=== PATIENT | male | born 2000 | race Caucasian/White ===

== ENCOUNTER 2020-06-23 11:43 | Emergency (ER) | payer OTHER ==
[~2020-06-23] VITALS: Ht 185 cm; Wt 97.5 kg
[2020-06-23] MEDS ORDERED: FAMOTIDINE 20MG/2ML IV (PEPCID) IV STA (11:54)
--- NOTE | 2020-06-23 11:59 | ED Abdominal Pain ---
General Stated Complaint: ABD PAIN Source of Information: Patient Exam Limitations: No Limitations History of Present Illness Date Seen by Provider: Jun 23, 2020 Time Seen by Provider: 11:46 Initial Comments Patient presents ER by private conveyance with chief complaint of 2 days of mild to moderate 4 out of 10 persistent epigastric abdominal discomfort. He rates it as sharp and took some Tums for today that did not help. He is not using any medications or have any history of medical problems. No history abdominal surgeries. No trauma. Pain started around 4:30 in the afternoon and he had eaten a chicken sandwich before that. No sick contacts. No diarrhea or constipation. He had a normal bowel movement today. No nausea vomiting fever chills. Allergies and Home Medications Allergies Coded Allergies: No Known Drug Allergies (Unverified , 06/23/20) Patient Home Medication List Home Medication List Reviewed: Yes Review of Systems Review of Systems Constitutional: No chills, No diaphoresis EENTM: No Blurred Vision, No Double Vision Respiratory: Denies Cough, Denies Shortness of Air Cardiovascular: Denies Chest Pain, Denies Edema Gastrointestinal: See HPI; Denies Abdomen Distended; Abdominal Pain; Denies Blood Streaked Stools, Denies Constipated, Denies Diarrhea, Denies Nausea Genitourinary: Denies Burning, Denies Discharge Musculoskeletal: No back pain, No joint pain Skin: No pruritus, No rash All Other Systems Reviewed Negative Unless Noted: Yes Past Igfatiw-Toivea-Febstd Hx Patient Social History Alcohol Use: Denies Use Smoking Status: Never a Smoker Physical Exam Vital Signs Vital Signs - First Documented 06/23/20 11:50 Temp 36.6 Pulse 112 Resp 20 B/P (MAP) 150/87 (108) Pulse Ox 98 Capillary Refill : Height/Weight/BMI Height: '" Weight: lbs. oz. kg; BMI Method: General Appearance: WD/WN, no apparent distress HEENT: PERRL/EOMI, pharynx normal Neck: full range of motion, normal inspection Respiratory: no respiratory distress, no accessory muscle use Cardiovascular: normal peripheral pulses, regular rate, rhythm Gastrointestinal: normal bowel sounds, soft, no organomegaly; No rebound; tenderness (Midepigastric), other (Negative for McBurney's point tenderness, Rovsing sign, Laguerre sign.) Neurologic/Psychiatric: alert, oriented x 3 Skin: normal color, warm/dry Progress/Results/Core Measures Results/Orders Lab Results Laboratory Tests Test 06/23/20 11:56 06/23/20 13:12 Range/Units White Blood Count 8.6 4.3-11.0 10^3/uL Red Blood Count 5.04 4.30-5.52 10^6/uL Hemoglobin 15.6 13.3-17.7 g/dL Hematocrit 45 40-54 % Mean Corpuscular Volume 90 80-99 fL Mean Corpuscular Hemoglobin 31 25-34 pg Mean Corpuscular Hemoglobin Concent 34 32-36 g/dL Red Cell Distribution Width 11.9 10.0-14.5 % Platelet Count 371 130-400 10^3/uL Mean Platelet Volume 9.8 9.0-12.2 fL Immature Granulocyte % (Auto) 0 % Neutrophils (%) (Auto) 50 42-75 % Lymphocytes (%) (Auto) 31 12-44 % Monocytes (%) (Auto) 8 0-12 % Eosinophils (%) (Auto) 10 0-10 % Basophils (%) (Auto) 1 0-10 % Neutrophils # (Auto) 4.3 1.8-7.8 10^3/uL Lymphocytes # (Auto) 2.7 1.0-4.0 10^3/uL Monocytes # (Auto) 0.7 0.0-1.0 10^3/uL Eosinophils # (Auto) 0.9 H 0.0-0.3 10^3/uL Basophils # (Auto) 0.0 0.0-0.1 10^3/uL Immature Granulocyte # (Auto) 0.0 0.0-0.1 10^3/uL Sodium Level 141 135-145 MMOL/L Potassium Level 3.9 3.6-5.0 MMOL/L Chloride Level 107 98-107 MMOL/L Carbon Dioxide Level 26 21-32 MMOL/L Anion Gap 8 5-14 MMOL/L Blood Urea Nitrogen 12 7-18 MG/DL Creatinine 0.92 0.60-1.30 MG/DL Estimat Glomerular Filtration Rate > 60 BUN/Creatinine Ratio 13 Glucose Level 100 70-105 MG/DL Calcium Level 9.0 8.5-10.1 MG/DL Corrected Calcium 8.6 8.5-10.1 MG/DL Total Bilirubin 0.4 0.1-1.0 MG/DL Aspartate Amino Transf (AST/SGOT) 22 5-34 U/L Alanine Aminotransferase (ALT/SGPT) 28 0-55 U/L Alkaline Phosphatase 82 40-136 U/L C-Reactive Protein High Sensitivity 0.14 0.00-0.50 MG/DL Total Protein 7.5 6.4-8.2 GM/DL Albumin 4.5 3.2-4.5 GM/DL Lipase 30 8-78 U/L My Orders Orders - MATT PEREZ Cbc With Automated Diff (06/23/20 11:54) Comprehensive Metabolic Panel (06/23/20 11:54) Hs C Reactive Protein (06/23/20 11:54) Lipase (06/23/20 11:54) Ua Culture If Indicated (06/23/20 11:54) Lidocaine 2% Viscous 15 Ml (Xylocaine Vi (06/23/20 12:00) Antacid Suspension (Mylanta Suspension (06/23/20 12:00) Famotidine Injection (Pepcid Injection) (06/23/20 11:54) Ketorolac Injection (Toradol Injection) (06/23/20 12:45) Medications Given in ED Current Medications Medications Dose Ordered Sig/Katia Route Start Time Stop Time Status Last Admin Dose Admin Al Hydrox/Mg Hydrox/Simethicone 30 ml ONCE ONCE PO 06/23/20 12:00 06/23/20 12:01 DC 06/23/20 12:01 30 ML Ketorolac Tromethamine 30 mg ONCE ONCE IVP 06/23/20 12:45 06/23/20 12:46 DC 06/23/20 13:20 30 MG Lidocaine HCl 15 ml ONCE ONCE PO 06/23/20 12:00 06/23/20 12:01 DC 06/23/20 12:01 15 ML Vital Signs/I&O 06/23/20 11:50 Temp 36.6 Pulse 112 Resp 20 B/P (MAP) 150/87 (108) Pulse Ox 98 Progress Progress Note #1: Time: 11:58 Progress Note GERD/gastritis/PUD, pancreatitis, less likely colitis or appendicitis or cholecystitis. We will check some labs including a CRP and lipase. And given a GI cocktail if it does not help we may set him up to follow-up with Dr. Sutherland to consider an upper GI work-up including gallbladder or EGD. Progress Note #2: Time: 13:43 Progress Note GI cocktail did not help but pain was significantly improved with Toradol. Suspect gallbladder, less likely Meckel's or other source of his pain. Putting on omeprazole have him follow-up outpatient with Dr. Sutherland if his symptoms can persist and have them get an ultrasound outpatient of his gallbladder. Return precautions were discussed. Departure Impression Primary Impression: Abdominal pain Qualified Codes: R10.13 - Epigastric pain Disposition: 01 HOME, SELF-CARE Condition: Improved Departure-Patient Inst. Decision time for Depature: 13:44 Referrals: ROSEMARY SUTHERLAND DO NO,LOCAL PHYSICIAN (PCP) Primary Care Physician Patient Instructions: Abdominal Pain, Adult ED Add. Discharge Instructions: We did not find anything directly emergent about your abdominal pain today however there could be something brewing with your gallbladder or may be a Meckel's diverticulum or other similar situation. The next step is to get an ultrasound scheduled by calling the number on top of the order sheet. Then follow-up with Dr. Sutherland for results and further management of your symptoms. Omeprazole 40 mg daily for the next 2 weeks to reduce your acid and help reduce symptoms. Change your diet to include high-fiber and white meat. Avoid red meats, greasy foods, dairy, etc. Return to the ER promptly if you develop a fever above 100.3, intractable pain despite Tylenol and ibuprofen, or intractable nausea and vomiting. Scripts Omeprazole (Omeprazole) 40 Mg Capsule. 40 MG PO DAILY for 14 Days, #14 CAP 0 Refills Prov: MATT PEREZ 06/23/20 Work/School Note: Work Release Form Date Seen in the Emergency Department: Jun 23, 2020 Return to Work: Jun 24, 2020 Restrictions: No Restrictions Copy Copies To 1: ROSEMARY SUTHERLAND DO MATT PEREZ Jun 23, 2020 11:59
[2020-06-23] MEDS ORDERED: ANTACID SUSP 30 ML UDC (MYLANTA) PO ONE (12:00)
[2020-06-23] MEDS ORDERED: LIDOCAINE 2% VISCOUS 15 ML UDC PO ONE (12:00)
[2020-06-23 12:04] LABS: BASOPHILS % (AUTO) 1 % (0-10); EOSINOPHILS # (AUTO) 0.9 10^3/uL (0.0-0.3); EOSINOPHILS % (AUTO) 10 % (0-10); HEMATOCRIT 45 % (40-54); HEMOGLOBIN 15.6 g/dL (13.3-17.7); LYMPHOCYTES # (AUTO) 2.7 10^3/uL (1.0-4.0); LYMPHOCYTES % (AUTO) 31 % (12-44); MEAN CORPUSCULAR HEMOGLOBIN 31 pg (25-34); MEAN CORPUSCULAR HGB CONC 34 g/dL (32-36); MEAN CORPUSCULAR VOLUME 90 fL (80-99); MEAN PLATELET VOLUME 9.8 fL (9.0-12.2); MONOCYTES # (AUTO) 0.7 10^3/uL (0.0-1.0); MONOCYTES % (AUTO) 8 % (0-12); NEUTROPHILS # (AUTO) 4.3 10^3/uL (1.8-7.8); NEUTROPHILS % (AUTO) 50 % (42-75); PLATELET COUNT 371 10^3/uL (130-400); WHITE BLOOD COUNT 8.6 10^3/uL (4.3-11.0)
[2020-06-23 12:10] LABS: ALBUMIN 4.5 GM/DL (3.2-4.5); CHLORIDE 107 MMOL/L (98-107); POTASSIUM 3.9 MMOL/L (3.6-5.0); SODIUM 141 MMOL/L (135-145)
[2020-06-23 12:13] LABS: GLUCOSE 100 MG/DL (70-105); TOTAL PROTEIN 7.5 GM/DL (6.4-8.2)
[2020-06-23 12:14] LABS: BILIRUBIN,TOTAL 0.4 MG/DL (0.1-1.0); CARBON DIOXIDE 26 MMOL/L (21-32)
[2020-06-23 12:16] LABS: ALKALINE PHOSPHATASE 82 U/L (40-136); CREATININE SERUM 0.92 MG/DL (0.60-1.30); GFR ESTIMATED > 60
[2020-06-23 12:17] LABS: BUN/CREATININE RATIO 13
[2020-06-23 12:19] LABS: ALANINE AMINOTRANSFERASE 28 U/L (0-55)
[2020-06-23 12:20] LABS: LIPASE 30 U/L (8-78)
[2020-06-23] MEDS ORDERED: KETOROLAC 30 MG/ML VIAL IVP ONE (12:45)
[2020-06-23 13:22] LABS: BILIRUBIN,URINE NEGATIVE (NEGATIVE); CLARITY,URINE CLEAR; COLOR,URINE YELLOW; GLUCOSE, URINE (UA) NEGATIVE (NEGATIVE); KETONES,URINE NEGATIVE (NEGATIVE); LEUKOCYTE ESTERASE ,URINE NEGATIVE (NEGATIVE); NITRITE,URINE NEGATIVE (NEGATIVE); PROTEIN,URINE NEGATIVE (NEGATIVE)
[2020-06-23 13:45] LABS: BACTERIA,URINE TRACE /HPF
[2020-06-23] MEDS ORDERED: OMEP40CA27 PO (13:47)
[2020-06-23 13:56] VITALS: BP 132/84
== END 2020-06-23 13:54 | disposition home or self-care (01) ==
LOC: ER 11:47
DX: R10.13 Epigastric pain (principal)
CPT/HCPCS: 36415; 80053; 81000; 83690; 85025; 86141

== ENCOUNTER → 2020-06-25 | Outpatient (CLI) | payer OTHER ==
[~2020-06-25] MED LIST: OMEP40CA27 PO
--- NOTE | 2020-06-25 11:08 | Diagnostic Imaging Report ---
PROCEDURE: US Gallbladder. TECHNIQUE: Multiple Real-time grayscale images were obtained over the right upper quadrant in various projections. INDICATION: Epigastric pain. FINDINGS: The liver is normal in size at 15 cm. No discrete liver mass is detected. The portal vein is patent and shows normal direction of flow. The gallbladder is without stones or sludge. No wall thickening or biliary ductal dilatation is seen. The pancreas unremarkable. The aorta is nonaneurysmal. The IVC is patent. The right kidney is without calculus or hydronephrosis. There is no ascites. IMPRESSION: Unremarkable gallbladder ultrasound. Dictated by: Dictated on workstation # [id number]
== END ==
LOC: RAD 09:07
PROVIDERS: ATTEND Emergency Medicine
DX: R10.13 Epigastric pain (principal)
CPT/HCPCS: 76705